=== PATIENT | male | born 1965 | race Caucasian/White ===

== ENCOUNTER 2024-12-08 21:31 | Inpatient (IN) | payer MEDICAID ==
[2024-12-08 21:43] LABS: BASOPHILS ABSOLUTE AUTO 0.08 K/uL (0.00-0.10); BASOPHILS PERCENT AUTO 1.1 % (0.1-1.3); EOSINOPHILS ABSOLUTE AUTO 0.28 K/uL (0.00-0.40); EOSINOPHILS PERCENT AUTO 3.7 % (0.0-5.4); HEMATOCRIT 42.4 % (38.4-49.7); IMMATURE GRAN PERCENT AUTO 0.3 % (0.0-0.7); LYMPHOCYTES ABSOLUTE AUTO 1.78 K/uL (0.8-3.3); LYMPHOCYTES PERCENT AUTO 23.4 % (11.4-47.7); MEAN CORPUSCULAR HEMOGLOBIN 30.8 pg (31.6-35.5); MEAN CORPUSCULAR VOLUME 93.2 fL (81.4-99.0); MONOCYTES ABSOLUTE AUTO 1.07 K/uL (0.20-0.90); MONOCYTES PERCENT AUTO 14.1 % (3.3-12.6); NEUTROPHILS ABSOLUTE AUTO 4.38 K/uL (1.0-7.6); NEUTROPHILS PERCENT AUTO 57.4 % (40.0-78.1); PLATELET COUNT,PLT 165 K/uL (130-375); RED BLOOD CELL COUNT 4.55 M/uL (4.14-5.76); WHITE BLOOD CELL COUNT,WBC 7.6 K/uL (3.2-11.0)
[2024-12-08 21:44] LABS: IMMATURE GRAN ABSOLUTE AUTO 0.02 K/uL (0.00-0.23)
[2024-12-08 22:05] LABS: A/G RATIO 0.5 (1.2-2.2); ALANINE AMINOTRANSFERASE,ALT 61 U/L (12-78); ALBUMIN 2.5 g/dL (3.4-5.0); ALKALINE PHOSPHATASE 246 U/L (46-116); ANION GAP 11.5 mmol/L (5.0-14.0); ASPARTATE AMNIOTRANSFERASE,AST 152 U/L (15-37); BILIRUBIN TOTAL 1.3 mg/dL (0.2-1.0); BLOOD UREA NITROGEN,BUN 18 mg/dL (7-18); CALCIUM 8.2 mg/dL (8.5-10.1); CARBON DIOXIDE,CO2 29 mmol/L (21-32); CHLORIDE,CL 103 mmol/L (100-108); ESTIMATED GFR 87 mL/min (>60); GLUCOSE RANDOM 303 mg/dL (74-106); POTASSIUM,K 4.5 mmol/L (3.6-5.2); PROTEIN TOTAL,TP 7.1 g/dL (6.4-8.2); SODIUM,NA 139 mmol/L (140-148)
[2024-12-08] MEDS: LORazepam 0.5 MG Tab PO ONE (22:18)
[2024-12-08] MEDS ORDERED: 50% Dextrose in Water 50 ML Syringe IVPUSH PRN ×2 (22:26→22:28)
[2024-12-08] MEDS ORDERED: Glucagon,Human Recombinant 1 MG Vial IM PRN ×2 (22:26→22:28)
[2024-12-08] MEDS: Insulin Regular, Human 100 Units/ML 10 ML Vial SUBCUT ONE (22:38)
[2024-12-08] MEDS: Lactulose Soln 10 GM/15 ML 15 ML UD Cup PO ONE (23:15)
[2024-12-08] MEDS: LORazepam 1 MG Tab PO ONE (23:15)
[2024-12-09] MEDS ORDERED: 50% Dextrose in Water 50 ML Syringe IVPUSH PRN (06:47)
[2024-12-09] MEDS ORDERED: Glucagon,Human Recombinant 1 MG Vial IM PRN (06:47)
[2024-12-09] MEDS: Insulin Glargine,Human Rec. Analog 100 Units/ML 3 ML Pen SUBCUT ONE (07:08)
[2024-12-09] MEDS: Lactulose Soln 10 GM/15 ML 15 ML UD Cup PO ONE (08:14)
[2024-12-09 08:41] LABS: APPEARANCE,URINE CLEAR (CLEAR); BILIRUBIN,URINE NEGATIVE (NEGATIVE); COLOR,URINE YELLOW (YELLOW); GLUCOSE,URINE 250 mg/dL (NEGATIVE); KETONES,URINE 15 mg/dL (NEGATIVE); LEUKOCYTE ESTERASE,URINE NEGATIVE (NEGATIVE); NITRITE,URINE NEGATIVE (NEGATIVE); OCCULT BLOOD,URINE NEGATIVE (NEGATIVE); PH,URINE 6.5 (5.0-8.0); PROTEIN,URINE 30 mg/dL (NEGATIVE); UROBILINOGEN,URINE 0.2 EU/dL (0.2-1.0)
[2024-12-09 08:56] LABS: BACTERIA,URINE RARE; EPITHELIAL CELLS,URINE RARE; RBC,URINE 0-5 (0-5); WBC,URINE 0-5 (0-5)
[2024-12-09 08:57] LABS: AMORPHOUS SEDIMENT,URINE NOT SEEN; MUCUS,URINE MANY
[2024-12-09 08:58] LABS: AMPHETAMINES SCREEN, URINE NEGATIVE (NEGATIVE); BARBITURATE SCREEN,URINE NEGATIVE (NEGATIVE); BENZODIAZEPINES SCREEN,URINE PRESUMPTIVE POSITIVE (NEGATIVE); METHADONE SCREEN, URINE NEGATIVE (NEGATIVE); METHAMPHETAMINES SCREEN, URINE NEGATIVE (NEGATIVE); OXYCODONE SCREEN,URINE NEGATIVE (NEGATIVE); PROPOXYPHENE SCREEN,URINE NEGATIVE (NEGATIVE); THC SCREEN,URINE 50 NG/ML NEGATIVE (NEGATIVE)
[2024-12-09] MEDS ORDERED: Insulin Glargine,Human Rec. Analog 100 Units/ML 3 ML Pen SUBCUT ONE (09:00)
[2024-12-09] MEDS: Lactulose Soln 10 GM/15 ML 15 ML UD Cup ONE (09:38)
[2024-12-09 11:50] LABS: INR 1.4; PROTHROMBIN TIME 13.8 sec (9.2-10.6)
[2024-12-09] MEDS ORDERED: LORazepam 2 MG/ML SDV IVPUSH PRN (14:00)
[2024-12-09] MEDS ORDERED: Sennosides/Docusate Sodium 50-8.6 MG Tab PO PRN (14:00)
[2024-12-09] MEDS ORDERED: Magnesium Hydroxide 400 MG/5 ML Susp 30 ML Cup PO PRN (14:00)
[2024-12-09] MEDS ORDERED: Ondansetron 4 MG Tab.DIS PO PRN (14:00)
[2024-12-09] MEDS ORDERED: Morphine 2 MG/ML SYRINGE IVPUSH PRN (14:00)
[2024-12-09] MEDS ORDERED: Acetaminophen 325 MG Tab PO PRN (14:00)
[2024-12-09] MEDS ORDERED: LACTULOSE 10 GM/15 ML PO SCH (14:15)
[2024-12-09] MEDS ORDERED: Lactulose Soln 10 GM/15 ML 15 ML UD Cup PO SCH (15:00)
[2024-12-09] MEDS: LORazepam 1 MG Tab PO SCH (15:10)
[2024-12-09] MEDS: Thiamine 100 MG Tab PO SCH (15:10)
[2024-12-09] MEDS: Insulin Lispro 100 Unit/ML 3 ML KwikPen SUBCUT SCH (15:11)
[2024-12-09] MEDS: Folic Acid 1 MG Tab PO SCH (15:11)
[2024-12-09] MEDS: Lactulose Soln 10 GM/15 ML ML 473 ML Bottle PO SCH (15:12)
[2024-12-09] MEDS: Sodium Chloride 0.9% 1,000 ML IV SCH (15:15)
[2024-12-09] MEDS: Nicotine 14 MG/24 Hr Patch TRDERM SCH (16:55)
[2024-12-09] MEDS: LORazepam 2 MG/ML SDV IV SCH (22:07)
[2024-12-09] MEDS: Ondansetron 4 MG/2 ML SDV IV PRN (22:33)
[2024-12-09] MEDS: Metoprolol Tartrate 5 MG/5 ML SDV IVPUSH PRN (23:16)
[2024-12-10 06:29] LABS: HEMATOCRIT 27.6 % (38.4-49.7); HEMOGLOBIN 9.2 g/dL (12.9-16.9); MEAN CORPUSCULAR HEMOGLOBIN 30.7 pg (31.6-35.5); MEAN CORPUSCULAR HGB CONC 33.3 g/dL (31.6-35.5); WHITE BLOOD CELL COUNT,WBC 9.7 K/uL (3.2-11.0)
[2024-12-10 06:51] LABS: A/G RATIO 0.6 (1.2-2.2); ALANINE AMINOTRANSFERASE,ALT 105 U/L (12-78); ALBUMIN 1.9 g/dL (3.4-5.0); ALKALINE PHOSPHATASE 183 U/L (46-116); ANION GAP 5.8 mmol/L (5.0-14.0); ASPARTATE AMNIOTRANSFERASE,AST 334 U/L (15-37); BLOOD UREA NITROGEN,BUN 22 mg/dL (7-18); CALCIUM 7.5 mg/dL (8.5-10.1); CARBON DIOXIDE,CO2 28 mmol/L (21-32); CHLORIDE,CL 107 mmol/L (100-108); CREATININE 1.3 mg/dL (0.8-1.3); EST CRCL DRUG DOSING (CG) 84.74 mL/min; ESTIMATED GFR 64 mL/min (>60); GLUCOSE RANDOM 191 mg/dL (74-106); POTASSIUM,K 4.5 mmol/L (3.6-5.2); PROTEIN TOTAL,TP 5.1 g/dL (6.4-8.2); SODIUM,NA 141 mmol/L (140-148)
[2024-12-10] MEDS: Pantoprazole 80 MG in Sodium Chloride 0.9% 100 ML IV SCH (08:33)
[2024-12-10] MEDS: cefTRIAXone 1 GM in Sodium Chloride 0.9% 50 ML IV SCH (08:42)
[2024-12-10] MEDS: Octreotide 500 MCG in Sodium Chloride 0.9% 497.5 ML IV SCH (08:54)
[2024-12-10] MEDS ORDERED: Non-Formulary Medication 1 Each (Insulin Glargine,Hum.Rec.Anlog [Lantus] 100 UNIT/ML Vial) SQ SCH (09:00)
[2024-12-10] MEDS ORDERED: PHENobarbital 32.4 MG Tab PO ONE (09:45)
[2024-12-10] MEDS ORDERED: PHENobarbitaL sodium 260 MG in Sodium Chloride 0.9% 100 ML IV ONE (10:30)
[2024-12-10] MEDS: Insulin Glargine,Human Rec. Analog 100 Units/ML 3 ML Pen SUBCUT SCH (10:37)
[2024-12-10] MEDS: Sodium Chloride 0.9% 250 ML IV SCH (11:00)
[2024-12-10 11:20] LABS: HEMATOCRIT 26.8 % (38.4-49.7); HEMOGLOBIN 8.7 g/dL (12.9-16.9)
[2024-12-10] MEDS ORDERED: PHENobarbital Sodium 65 MG/ML SDV IVPUSH ONE (11:30)
[2024-12-10] MEDS: PHENobarbital Sodium 65 MG/ML SDV IVPUSH ONE (12:17)
== END 2024-12-10 12:44 | DRG 897 ==
LOC: JP.ED 21:31 → JP.ICU 12-09 12:39
PROVIDERS: ADMIT Hospitalist; ATTEND Hospitalist
PROC: HZ2ZZZZ Detoxification Services for Substance Abuse Treatment (ICD-10-PCS; principal; 2024-12-09)
DX: F10.139 Alcohol abuse with withdrawal, unspecified (principal); E86.0 Dehydration; K74.60 Unspecified cirrhosis of liver; E11.9 Type 2 diabetes mellitus without complications; Z72.0 Tobacco use; Z79.4 Long term (current) use of insulin; Z79.899 Other long term (current) drug therapy
CPT/HCPCS: 36415; 71045; 80053; 80305-QW; 80307; 81001; 82140; 82272; 82947; 83690; 83880; 85014; 85018; 85025; 85027; 85610; 93005; 93010; 99223; 99239; 99285; A9270-GY; J0696; J1815; J1815-GY; J2060; J2354-JA; J2405; J2470; J2560; J3490; J7030; J7040; J7050